=== PATIENT | female | born 1985 | race Caucasian/White ===

== ENCOUNTER 2016-10-04 16:52 | Emergency (ER) | payer SELFPAY ==
--- NOTE | 2016-10-04 17:39 | C.PDOC ---
History Of Present Illness <Yvonne Hart - Last Filed: 10/04/16 18:52> <Vikki Hicks - Last Filed: 10/04/16 19:15> 31 y/o female presents to ED with complaints of suprapubic pain for a couple of days. Patient states she took a home that was positive and reports LMP 08/12/16. Patient denies vaginal bleeding, fever, chills or any other medical problems. No other complaints at this time. (Yvonne Hart) History Per: Patient History/Exam Limitations: no limitations Onset/Duration Of Symptoms: Days Current Symptoms Are (Timing): Still Present <Yvonne Hart - Last Filed: 10/04/16 18:52> <Vikki Hicks - Last Filed: 10/04/16 19:15> Time Seen by Provider: 10/04/16 17:15 Chief Complaint (Nursing): Female Genitourinary Past Medical History Reviewed: Historical Data, Nursing Documentation, Vital Signs Family History: States: Unknown Family Hx - Social History Hx Alcohol Use: No Hx Substance Use: No - Immunization History Hx Tetanus Toxoid Vaccination: No Hx Influenza Vaccination: No Hx Pneumococcal Vaccination: No <Yvonne Hart - Last Filed: 10/04/16 18:52> Review Of Systems Except As Marked, All Systems Reviewed And Found Negative. Constitutional: Negative for: Fever, Chills Gastrointestinal: Positive for: Abdominal Pain. Negative for: Nausea, Vomiting , Diarrhea Genitourinary: Negative for: Dysuria, Vaginal Bleeding Skin: Negative for: Rash <Yvonne Hart - Last Filed: 10/04/16 18:52> Physical Exam - Physical Exam Appears: Non-toxic, No Acute Distress Skin: Normal Color, Warm, Other (multiple areas of erythema noted on both lower extremities) Head: Atraumatic, Normacephalic Oral Mucosa: Moist Cardiovascular: Rhythm Regular, No Murmur Respiratory: Normal Breath Sounds, No Rales, No Rhonchi, No Wheezing Gastrointestinal/Abdominal: Tenderness (Suprapubic Tenderness), No Guarding, No Rebound Extremity: Normal ROM, Capillary Refill (<2 seconds) Neurological/Psych: Oriented x3 <Yvonne Hart - Last Filed: 10/04/16 18:52> ED Course And Treatment - Laboratory Results Result Diagrams: 10/04/16 17:46 10/04/16 17:46 Lab Interpretation: Normal Urine POC: Positive O2 Sat by Pulse Oximetry: 98 (RA) Pulse Ox Interpretation: Normal Progress Note: Abdomen soft mild lower abdominal tenderness <HaileyYvonne - Last Filed: 10/04/16 18:52> - Laboratory Results Result Diagrams: 10/04/16 17:46 10/04/16 17:46 Lab Interpretation: Normal (BHCG 1605) Urine POC: Positive Pulse Ox Interpretation: Normal - CT Scan/US Pelvic ultrasound Other Rad Studies (CT/US): Read By Radiologist, Radiology Report Reviewed CT/US Interpretation: Accession No. : [id number]. Patient Name / ID : GARCIA PRINCE / [id number]. Exam Date : 10/04/2016 18:04:17 ( Approved ). Study Comment : Sex / Age : F / 31Y. Creator : Marcell Lantigua MD. Dictator : Marcell Lantigua MD. Residential Tech : Branch Operation Evaluation Manager : Marcell Lantigua MD. Approver2 : Report Date : 10/04/2016 19:01:39. My Comment : . HISTORY: bleeding. COMPARISON: None available. TECHNIQUE: Transabdominal and transvaginal. FINDINGS: UTERUS: Measures 8.3 x 4.8 x 5.6 cm. No uterine mass. ENDOMETRIUM: Measures 16 mm in diameter. 3 mm cystic structure within the endometrium, out of range for determination of age. This may represent an early intrauterine gestation but should be followed up with serial beta HCG and transvaginal pelvic ultrasound examination. CERVIX: No cervical abnormality identified. RIGHT OVARY: Measures 2.8 x 2.3 x 2.4 cm. No solid mass. Normal flow. LEFT OVARY: Measures 3.2 x 2.0 x 2.7 cm. No solid mass. Normal flow. FREE FLUID: No significant free fluid noted. OTHER FINDINGS: None. IMPRESSION: Tiny endometrial cyst, 3 mm, out of range for determination of age. Possible very early intrauterine gestation. Please correlate with serial beta HCG and follow-up with transvaginal pelvic ultrasound examination if warranted. Otherwise unremarkable examination. Reevaluation Time: 19:14 Reassessment Condition: Improved <Vikki Hicks - Last Filed: 10/04/16 19:15> Medical Decision Making <Yvonne Hart - Last Filed: 10/04/16 18:52> <Vikki Hicks - Last Filed: 10/04/16 19:15> Medical Decision Making: Plan: * Ultrasound of abdomen * Labs (Yvonne Hart) Disposition Counseled Patient/Family Regarding: Studies Performed, Diagnosis, Need For Followup - Disposition Disposition Time: 19:00 - POA Present On Arrival: None <Yvonne Hart - Last Filed: 10/04/16 18:52> Counseled Patient/Family Regarding: Studies Performed, Diagnosis, Need For Followup <Vikki Hicks - Last Filed: 10/04/16 19:15> - Disposition Referrals: [facility] [Outside] Disposition: HOME/ ROUTINE Condition: STABLE Additional Instructions: Follow up with program architect for further evaluation Instructions: Abdominal Pain in (ED) Print Language: CHILEAN - Clinical Impression Clinical Impression: Insect bite - wound, Abdominal pain affecting - Scribe Statement The provider has reviewed the documentation as recorded by the Scribe <Yvonne Hart - Last Filed: 10/04/16 18:52> <Vikki Hicks - Last Filed: 10/04/16 19:15> - Scribe Statement Maxwell Mays All medical record entries made by the Scribe were at my direction and personally dictated by me. I have reviewed the chart and agree that the record accurately reflects my personal performance of the history, physical exam, medical decision making, and the department course for this patient. I have also personally directed, reviewed, and agree with the discharge instructions and disposition. (Yvonne Hart) Physician Patient Turnover Patient Signed Over To: Vikki Hicks Handoff Comments: pending US <Yvonne Hart - Last Filed: 10/04/16 18:52>
[2016-10-04 18:09] LABS: BASO % 0.2 % (0.0-2.0); EOS # 0.1 K/uL (0.0-0.7); EOS % 1.2 % (0.0-4.0); HEMOGLOBIN 12.7 g/dL (11.0-16.0); LYMPH # 1.8 K/uL (1.0-4.3); LYMPH % 25.5 % (20.0-40.0); MEAN CELL VOLUME 89.9 fL (81.0-99.0); MEAN CORPUSCULAR HEMOGLOBIN 29.9 pg (27.0-31.0); MEAN CORPUSCULAR HGB CONC 33.2 g/dL (33.0-37.0); MEAN PLATELET VOLUME 9.6 fL (7.2-11.7); MONO # 0.5 K/uL (0.0-0.8); MONO % 6.7 % (0.0-10.0); NEUT # 4.6 K/uL (1.8-7.0); NEUT % 66.4 % (50.0-75.0); RBC 4.23 Mil/uL (3.80-5.20); RED CELL DISTRIBUTION WIDTH 14.3 % (11.5-14.5)
[2016-10-04 18:11] LABS: BLOOD UREA NITROGEN 10 mg/dL (7-17); GFR AFRICAN-AMERICAN > 60; GFR NON-AFRICAN AMERICAN > 60
[2016-10-04 18:12] LABS: CALCIUM 8.9 mg/dl (8.6-10.4)
[2016-10-04 18:56] LABS: HCG,QUALITATIVE URINE POSITIVE (NEGATIVE)
[2016-10-04 19:00] LABS: SQUAMOUS EPITHIAL 8 /hpf (0-5); URINE BACTERIA RARE (<OCC); URINE BILIRUBIN NEGATIVE (NEGATIVE); URINE BLOOD NEGATIVE (NEGATIVE); URINE CLARITY Clear (Clear); URINE COLOR Yellow (YELLOW); URINE GLUCOSE (UA) NORMAL (Normal); URINE LEUKOCYTE ESTERASE NEG Leu/uL (Negative); URINE NITRATE NEGATIVE (NEGATIVE); URINE PROTEIN NEGATIVE (NEGATIVE); URINE UROBILINOGEN NORMAL mg/dL (0.2-1.0)
--- NOTE | 2016-10-04 19:03 | US ---
HISTORY: bleeding COMPARISON: None available. TECHNIQUE: Transabdominal and transvaginal FINDINGS: UTERUS: Measures 8.3 x 4.8 x 5.6 cm. No uterine mass ENDOMETRIUM: Measures 16 mm in diameter. 3 mm cystic structure within the endometrium, out of range for determination of age. This may represent an early intrauterine gestation but should be followed up with serial beta HCG and transvaginal pelvic ultrasound examination. CERVIX: No cervical abnormality identified. RIGHT OVARY: Measures 2.8 x 2.3 x 2.4 cm. No solid mass. Normal flow. LEFT OVARY: Measures 3.2 x 2.0 x 2.7 cm. No solid mass. Normal flow. FREE FLUID: No significant free fluid noted. OTHER FINDINGS: None. IMPRESSION: Tiny endometrial cyst, 3 mm, out of range for determination of age. Possible very early intrauterine gestation. Please correlate with serial beta HCG and follow-up with transvaginal pelvic ultrasound examination if warranted. Otherwise unremarkable examination.
[2016-10-04 19:24] VITALS: BP 108/72; PULSE 78; RESP 16; TEMP 99; O2SAT 100
== END 2016-10-04 19:24 | disposition home or self-care (01) ==
LOC: C.ER 16:52
DX: O26.899 Other specified pregnancy related conditions, unspecified trimester (principal); R10.30 Lower abdominal pain, unspecified; Z3A.00 Weeks of gestation of pregnancy not specified; S80.862A Insect bite (nonvenomous), left lower leg, initial encounter; S80.861A Insect bite (nonvenomous), right lower leg, initial encounter; W57.XXXA Bitten or stung by nonvenomous insect and other nonvenomous arthropods, initial encounter

== ENCOUNTER 2017-02-09 23:29 | Emergency (ER) | payer SELFPAY ==
--- NOTE | 2017-02-09 23:54 | C.PDOC ---
History Of Present Illness Pt presents with rlq abdominal pain and dysuria for about 2-3 days. No f/c/n/v. tolerating po. dull stabbing rlq pain. No bowel habit changes. Time Seen by Provider: 02/09/17 23:48 Chief Complaint (Nursing): Abdominal Pain History Per: Patient History/Exam Limitations: no limitations Onset/Duration Of Symptoms: Days Current Symptoms Are (Timing): Still Present Context: Other Severity: Moderate Pain Scale Rating Of: 4 Location Of Pain/Discomfort: RLQ Radiation Of Pain To:: None Quality Of Discomfort: Sharp, Stabbing Associated Symptoms: Urinary Symptoms. denies: Fever, Chills, Nausea Exacerbating Factors: None Alleviating Factors: None Last Bowel Movement: Yesterday Recent travel outside of the [place]: No Additional History Per: Patient Abnormal Vaginal Bleeding: No Past Medical History Reviewed: Historical Data, Nursing Documentation, Vital Signs Vital Signs: Last Vital Signs Temp 98.0 F 02/09/17 23:37 Pulse 78 02/09/17 23:37 Resp 16 02/09/17 23:37 BP 123/82 02/09/17 23:37 Pulse Ox 99 02/10/17 00:06 - Medical History PMH: Gastritis Family History: States: No Known Family Hx - Social History Hx Alcohol Use: No Hx Substance Use: No - Immunization History Hx Tetanus Toxoid Vaccination: No Hx Influenza Vaccination: No Hx Pneumococcal Vaccination: No Review Of Systems Constitutional: Negative for: Fever, Chills ENT: Negative for: Throat Pain Cardiovascular: Negative for: Chest Pain Respiratory: Negative for: Shortness of Breath Gastrointestinal: Positive for: Abdominal Pain (rlq). Negative for: Nausea, Vomiting Genitourinary: Positive for: Dysuria, Frequency Musculoskeletal: Negative for: Back Pain Skin: Negative for: Rash Neurological: Negative for: Weakness Psych: Negative for: Anxiety Physical Exam - Physical Exam Appears: Non-toxic, No Acute Distress Skin: Warm, Dry Head: Normacephalic Eye(s): bilateral: Normal Inspection Oral Mucosa: Moist Neck: Supple Chest: Symmetrical Cardiovascular: Rhythm Regular Respiratory: No Rales, No Rhonchi, No Wheezing Gastrointestinal/Abdominal: Soft, Tenderness (rlq), No Distention, No Guarding, No Rebound Back: No CVA Tenderness Extremity: Normal ROM Extremity: Bilateral: Atraumatic, Normal Color And Temperature, Normal ROM Pulses: Left Dorsalis Pedis: Normal, Right Dorsalis Pedis: Normal Neurological/Psych: Oriented x3, Normal Speech, Normal Cognition Gait: Steady ED Course And Treatment - Laboratory Results Result Diagrams: 02/10/17 00:16 02/10/17 00:16 O2 Sat by Pulse Oximetry: 99 Pulse Ox Interpretation: Normal Reevaluation Time: 03:55 Reassessment Condition: Improved Disposition Counseled Patient/Family Regarding: Studies Performed, Diagnosis, Need For Followup, Rx Given - Disposition Referrals: [facility] [Outside] [facility] [Outside] Disposition: HOME/ ROUTINE Disposition Time: 23:54 Condition: FAIR Prescriptions: Nitrofurantoin Macrocrystals [Macrobid] 1 cap PO BID #10 cap Polyethylene Glycol 3350 [Miralax] 17 gm PO DAILY #270 ml Instructions: Abdominal Pain (ED), Gas and Bloating (ED) Forms: [facility] (Albanian) Print Language: CYPRIOT - Clinical Impression Clinical Impression: Abdominal pain, Dysuria
[2017-02-09 23:56] LABS: RBC URINE 2 /hpf (0-3); URINE BILIRUBIN NEGATIVE (NEGATIVE); URINE BLOOD NEGATIVE (NEGATIVE); URINE COLOR Yellow (YELLOW); URINE GLUCOSE (UA) NORMAL (Normal); URINE KETONE NEGATIVE (NEGATIVE); URINE LEUKOCYTE ESTERASE NEG Leu/uL (Negative); URINE PROTEIN NEGATIVE (NEGATIVE); URINE UROBILINOGEN NORMAL mg/dL (0.2-1.0); WBC URINE 2 /hpf (0-5)
[2017-02-10 00:21] LABS: BASO % 0.1 % (0.0-2.0); EOS # 0.1 K/uL (0.0-0.7); EOS % 1.3 % (0.0-4.0); LYMPH # 2.6 K/uL (1.0-4.3); LYMPH % 28.8 % (20.0-40.0); MEAN CELL VOLUME 90.4 fL (81.0-99.0); MEAN CORPUSCULAR HEMOGLOBIN 30.5 pg (27.0-31.0); MEAN CORPUSCULAR HGB CONC 33.7 g/dL (33.0-37.0); MEAN PLATELET VOLUME 9.7 fL (7.2-11.7); MONO # 0.6 K/uL (0.0-0.8); MONO % 6.9 % (0.0-10.0); RED CELL DISTRIBUTION WIDTH 12.9 % (11.5-14.5); WHITE BLOOD COUNT 9.1 K/uL (4.8-10.8)
[2017-02-10 00:34] LABS: ALKALINE PHOSPHATASE 90 U/L (38-126); ALT/SGPT 38 U/L (9-52); AST/SGOT 24 U/L (14-36); BILIRUBIN,TOTAL 0.3 mg/dL (0.2-1.3); BLOOD UREA NITROGEN 15 mg/dL (7-17); CALCIUM 8.5 mg/dl (8.6-10.4); CARBON DIOXIDE 24 mmol/L (22-30); CHLORIDE 100 mmol/L (98-107); GFR AFRICAN-AMERICAN > 60; GLUCOSE,RANDOM 97 mg/dL (65-105); POTASSIUM 3.3 mmol/L (3.6-5.2); SODIUM 135 mmol/L (132-148); TOTAL PROTEIN 8.8 g/dL (6.3-8.3)
[2017-02-10] MEDS ORDERED: Iodixanol 320 MG/ML 100 ML BOTTLE IV ONE (00:57)
--- NOTE | 2017-02-10 01:32 | CT ---
EXAM: CT Abdomen and Pelvis With Intravenous Contrast EXAM DATE/TIME: 02/10/2017 12:02 AM CLINICAL HISTORY: 31 years old, female; Pain; Abdominal pain; Additional info: Rlq pain TECHNIQUE: Axial computed tomography images of the abdomen and pelvis with intravenous contrast. All CT scans at this facility use one or more dose reduction techniques, viz.: automated exposure control; ma/kV adjustment per patient size (including targeted exams where dose is matched to indication; i.e. head); or iterative reconstruction technique. Coronal and sagittal reformatted images were created and reviewed. CONTRAST: 100 mL of 100ml [id number] administered intravenously. COMPARISON: There are no prior studies for comparison. FINDINGS: Artifacts: Motion artifact degrades image quality. Streak artifact degrades image quality. Lower thorax: Heart size is normal. Lung bases are clear. ABDOMEN: Liver: unremarkable Gallbladder and bile ducts: unremarkable Pancreas: unremarkable Spleen: unremarkable Adrenals: unremarkable Kidneys and ureters: Right kidney is malrotated.Kidneys and ureters are otherwise unremarkable. Stomach and bowel: Streak and motion limited evaluation of the stomach. Stomach is almost empty. Rotation is normal. There is air and fluid throughout the small bowel. There is fecalization of the distal ileum. Appendix is unremarkable. Streak and motion limited evaluation of the colon. There is minimal diverticulosis. Appendix: See stomach and bowel PELVIS: Bladder: unremarkable Reproductive: Uterus and adnexal structures are unremarkable. ABDOMEN and PELVIS: Intraperitoneal space: There is no free air or free fluid. Bones/joints: There are no acute osseous abnormalities. Soft tissues: There is a small fat containing umbilical hernia. Vasculature: Vascular structures are unremarkable. Lymph nodes: There is shotty adenopathy. IMPRESSION: No acute solid visceral or bowel abnormality; no appendicitis or diverticulitis
[2017-02-10 05:32] VITALS: BP 135/84; PULSE 82; RESP 20; TEMP 98; O2SAT 98
== END 2017-02-10 05:31 | disposition home or self-care (01) ==
LOC: C.ER 23:29
DX: R10.31 Right lower quadrant pain (principal); R30.0 Dysuria
CPT/HCPCS: 74177; 80053; 81001; 83690; 84703; 85025; 85610; 85730; 96374; 99283; J1885; Q9967

== ENCOUNTER 2017-05-13 17:01 | Emergency (ER) | payer SELFPAY ==
[2017-05-13 17:24] VITALS: BMI 34.2
[2017-05-13 17:26] VITALS: BP 116/78; PULSE 88; RESP 18; TEMP 98.6; O2SAT 98
--- NOTE | 2017-05-13 19:25 | C.PDOC ---
History Of Present Illness 32 year old female presents to the ER with a complaint of a right sided headache since yesterday. Patient reports taking tylenol 650mg twice yesterday with some improvement but is concerned she may have neurological issues. Patient has had many prior evaluation in the past with normal findings. Denies fever, nausea, or vomiting. Time Seen by Provider: 05/13/17 19:16 Chief Complaint (Nursing): Weakness/Neurological Deficit History Per: Patient History/Exam Limitations: no limitations Onset/Duration Of Symptoms: Days Current Symptoms Are (Timing): Still Present Seizure Or Post-ictal Symptoms: None Fall Associated With With Symptoms: No Recent travel outside of the [place]: No - Symptoms Of CVA Associated Symptoms: denies: Impaired Speech, Seizure Activity, New Vision Deficit(Left), New Vision Deficit(Right), Decreased Ability To Walk, New Confusion Past Medical History Reviewed: Historical Data, Nursing Documentation, Vital Signs Vital Signs: Last Vital Signs Temp 98.6 F 05/13/17 17:24 Pulse 88 05/13/17 17:24 Resp 18 05/13/17 17:24 BP 116/78 05/13/17 17:24 Pulse Ox 98 05/13/17 19:25 - Medical History PMH: Gastritis Family History: States: Unknown Family Hx - Social History Hx Alcohol Use: No Hx Substance Use: No - Immunization History Hx Tetanus Toxoid Vaccination: No Hx Influenza Vaccination: No Hx Pneumococcal Vaccination: No Review Of Systems Constitutional: Negative for: Fever, Chills Eyes: Negative for: Vision Change Gastrointestinal: Negative for: Nausea, Vomiting Neurological: Positive for: Headache Physical Exam - Physical Exam Appears: Non-toxic, No Acute Distress Skin: Warm, Dry Head: Atraumatic, Normacephalic Eye(s): bilateral: Normal Inspection, PERRL, EOMI Ear(s): Bilateral: Other (Mild excoriation of outer ear canal without otitis externa) Oral Mucosa: Moist Neck: Normal, Supple Chest: Symmetrical, No Tenderness Cardiovascular: Rhythm Regular Respiratory: Normal Breath Sounds, No Rales, No Rhonchi, No Wheezing Gastrointestinal/Abdominal: Soft Extremity: Normal ROM (x4) Neurological/Psych: Oriented x3, Normal Speech, Normal Motor, Normal Sensation Gait: Steady ED Course And Treatment O2 Sat by Pulse Oximetry: 98 (Room air) Pulse Ox Interpretation: Normal Medical Decision Making Medical Decision Making: mild R ear external canal excoriation without otitis externa no s/s of flu now tylenol/motrin dosages educated. Disposition Doctor Will See Patient In The: Office Counseled Patient/Family Regarding: Studies Performed, Diagnosis - Disposition Referrals: [facility] [Outside] [facility] [Outside] Disposition: HOME/ ROUTINE Disposition Time: 19:25 Condition: GOOD Additional Instructions: sigue ibuprofeno 400-600 mg cada 6 horas mai necessario para dolor de morro Sigue Tylenol 1000 mg cada 6 horas mai necessario para dolor de morro Sigue en [facility] (gratis) mai necessario. Instructions: Headache, Adult Forms: [facility] (Hungarian) Print Language: SWEDISH - Clinical Impression Clinical Impression: Anxiety, Headache - Scribe Statement The provider has reviewed the documentation as recorded by the Scribe Mark Quesada All medical record entries made by the Scribe were at my direction and personally dictated by me. I have reviewed the chart and agree that the record accurately reflects my personal performance of the history, physical exam, medical decision making, and the department course for this patient. I have also personally directed, reviewed, and agree with the discharge instructions and disposition.
== END 2017-05-13 19:36 | disposition home or self-care (01) ==
LOC: C.ER 17:01
DX: F41.9 Anxiety disorder, unspecified (principal); R51 Headache

== ENCOUNTER 2017-06-10 06:44 | Emergency (ER) | payer OTHER ==
[2017-06-10 06:44] VITALS: BMI 34.2
[2017-06-10] MEDS ORDERED: Aluminum Hydroxide/Magnesium Hydroxide Susp (30 mL) PO STA (07:42)
--- NOTE | 2017-06-10 07:42 | C.PDOC ---
History Of Present Illness 32-YEAR-OLD FEMALE, PRESENTS TO THE EMERGENCY DEPARTMENT WITH COMPLAINTS OF EPIGASTRIC PAIN X3 DAYS. PAIN IS LOCALIZED, INTERMITTENT, WORSE WITH EATING. + NORMAL APPETITE. NO NVD. NO FEVER, PSHX NEG. +MULT PRIOR ER VISITS FOR VARIOUS ABD COMPLAINTS. STATES THIS PAIN IS DIFFERENT THAN PRIOR. EXAM NEG Time Seen by Provider: 06/10/17 07:19 Chief Complaint (Nursing): Abdominal Pain History Per: Patient History/Exam Limitations: no limitations Current Symptoms Are (Timing): Still Present Severity: Moderate Past Medical History Reviewed: Historical Data, Nursing Documentation, Vital Signs Vital Signs: Last Vital Signs Temp 98.6 F 06/10/17 10:42 Pulse 80 06/10/17 10:42 Resp 17 06/10/17 10:42 BP 107/69 06/10/17 10:42 Pulse Ox 99 06/10/17 10:42 - Medical History PMH: Gastritis Denies: Chronic Kidney Disease Family History: States: No Known Family Hx - Social History Hx Alcohol Use: No Hx Substance Use: No - Immunization History Hx Tetanus Toxoid Vaccination: No Hx Influenza Vaccination: No Hx Pneumococcal Vaccination: No Review Of Systems Constitutional: Negative for: Fever, Chills Cardiovascular: Negative for: Chest Pain Gastrointestinal: Positive for: Abdominal Pain. Negative for: Nausea, Vomiting , Diarrhea Genitourinary: Negative for: Dysuria, Frequency, Hematuria, Vaginal Discharge, Vaginal Bleeding Musculoskeletal: Negative for: Back Pain Physical Exam - Physical Exam Appears: Well, Non-toxic, No Acute Distress Skin: Normal Color, Warm, Dry, No Rash Head: Normacephalic Eye(s): bilateral: PERRL Nose: Normal, No Flaring, No Discharge Oral Mucosa: Moist Lips: Normal Appearing Neck: Normal ROM Cardiovascular: Rhythm Regular, No Murmur Respiratory: Normal Breath Sounds, No Accessory Muscle Use Gastrointestinal/Abdominal: Soft, No Tenderness, No Guarding, No Rebound Extremity: Normal ROM Neurological/Psych: Oriented x3, Normal Speech ED Course And Treatment - Laboratory Results Result Diagrams: 06/10/17 08:06 06/10/17 08:06 Urine POC: Positive O2 Sat by Pulse Oximetry: 97 (RA) Pulse Ox Interpretation: Normal - CT Scan/US ABD Other Rad Studies (CT/US): Read By Radiologist (D/W DR COLIN CHOLELITHIASIS NO THALIA CYSTITIS) TRANSVAG Other Rad Studies (CT/US): Read By Radiologist (D/W DR COLIN NO EVIDENCE IUP ) Progress - Data Reviewed Data Reviewed: Lab, Old records Disposition Counseled Patient/Family Regarding: Studies Performed, Diagnosis, Need For Followup - Disposition Referrals: [facility] [Outside] [facility] [Outside] Disposition: HOME/ ROUTINE Disposition Time: 11:49 Condition: IMPROVED Additional Instructions: REGRESE EN 2-3 [place] PARA REPETIR LA PRUEBA DE CARMEN DE [place]. EVITE ALIMENTOS GRASOS Y FRITOS. SEGUIMIENTO EN CLNICA. Instructions: Gallstones, Threatened Miscarriage Forms: [employer] (Slovak) Print Language: LAO - Clinical Impression Clinical Impression: , Biliary colic - Scribe Statement The provider has reviewed the documentation as recorded by the Scribe (Demetrio Rodriguez) All medical record entries made by the Scribe were at my direction and personally dictated by me. I have reviewed the chart and agree that the record accurately reflects my personal performance of the history, physical exam, medical decision making, and the department course for this patient. I have also personally directed, reviewed, and agree with the discharge instructions and disposition.
[2017-06-10] MEDS ORDERED: Aluminum Hydroxide/Magnesium Hydroxide Susp (30 mL) ONE (08:06)
[2017-06-10 08:12] LABS: BASO % 0.1 % (0.0-2.0); EOS # 0.1 K/uL (0.0-0.7); EOS % 1.7 % (0.0-4.0); HEMOGLOBIN 12.5 g/dL (11.0-16.0); LYMPH # 2.9 K/uL (1.0-4.3); LYMPH % 35.1 % (20.0-40.0); MEAN CELL VOLUME 91.3 fL (81.0-99.0); MEAN CORPUSCULAR HEMOGLOBIN 31.3 pg (27.0-31.0); MEAN CORPUSCULAR HGB CONC 34.3 g/dL (33.0-37.0); MEAN PLATELET VOLUME 9.8 fL (7.2-11.7); MONO # 0.4 K/uL (0.0-0.8); MONO % 4.5 % (0.0-10.0); NEUT # 4.8 K/uL (1.8-7.0); NEUT % 58.6 % (50.0-75.0); RBC 4.01 Mil/uL (3.80-5.20); RED CELL DISTRIBUTION WIDTH 13.8 % (11.5-14.5); WHITE BLOOD COUNT 8.2 K/uL (4.8-10.8)
[2017-06-10 08:18] LABS: SQUAMOUS EPITHIAL 1 /hpf (0-5); URINE BACTERIA RARE (<OCC); URINE BILIRUBIN NEGATIVE (NEGATIVE); URINE BLOOD NEGATIVE (NEGATIVE); URINE CLARITY Clear (Clear); URINE COLOR Yellow (YELLOW); URINE GLUCOSE (UA) NORMAL (Normal); URINE LEUKOCYTE ESTERASE NEG Leu/uL (Negative); URINE PROTEIN NEGATIVE (NEGATIVE)
[2017-06-10 08:25] LABS: ALB/GLOB RATIO 1.1 (1.0-2.1); ALBUMIN 4.1 g/dL (3.5-5.0); ALT/SGPT 61 U/L (9-52); AST/SGOT 68 U/L (14-36); BLOOD UREA NITROGEN 14 mg/dL (7-17); CALCIUM 8.3 mg/dl (8.6-10.4); GFR AFRICAN-AMERICAN > 60; GFR NON-AFRICAN AMERICAN > 60; LIPASE 175 U/L (23-300)
[2017-06-10 10:42] VITALS: TEMP 98.6
--- NOTE | 2017-06-10 11:34 | US ---
HISTORY: ABD PAIN R/O ECTOPIC COMPARISON: None available. TECHNIQUE: Transabdominal and transvaginal FINDINGS: UTERUS: Measures 7.9 x 4.2 x 5.4 cm. Normal in size and appearance. No fibroid or other mass lesion seen. ENDOMETRIUM: Measures 9 mm in diameter. Unremarkable. CERVIX: No cervical abnormality identified. RIGHT OVARY: Measures 3.3 x 2.0 x 3.3 cm. No solid mass. Normal flow. LEFT OVARY: Measures 2.9 x 1.8 x 3.1 cm. No solid mass. Normal flow. FREE FLUID: No significant free fluid noted. OTHER FINDINGS: None. IMPRESSION: Unremarkable pelvic ultrasound.
--- NOTE | 2017-06-10 11:51 | US ---
HISTORY: ABD PAIN R/O ACUTE THALIA COMPARISON: None. TECHNIQUE: Sonographic evaluation of the right upper quadrant of the abdomen. FINDINGS: LIVER: Measures 15.3 cm in length. Diffusely increased echogenicity of the liver parenchyma. Consistent with fatty infiltration. No focal mass. Smooth contour. No biliary ductal dilatation. GALLBLADDER: Cholelithiasis. No mural thickening. No pericholecystic fluid. Negative sonographic Botello sign. COMMON BILE DUCT: Measures 4 mm. No stones. No dilatation. PANCREAS: Unremarkable as visualized. No mass. No ductal dilatation. RIGHT KIDNEY: Measures 12.5 cm in length. Normal echogenicity. No calculus, mass, or hydronephrosis. AORTA: No aneurysmal dilatation. IVC: Unremarkable. OTHER FINDINGS: None . IMPRESSION: Cholelithiasis without sonographic evidence of cholecystitis. Mild fatty infiltration of the liver.
[2017-06-10 12:07] VITALS: BP 106/73; PULSE 79; RESP 18; O2SAT 99
== END 2017-06-10 12:10 | disposition home or self-care (01) ==
LOC: C.ER 06:44
DX: K80.50 Calculus of bile duct without cholangitis or cholecystitis without obstruction (principal); O26.90 Pregnancy related conditions, unspecified, unspecified trimester; Z3A.00 Weeks of gestation of pregnancy not specified
CPT/HCPCS: 76705; 76830; 76856; 80053; 81001; 83690; 84702; 85025; 96374; 96375; 99285; C9113

== ENCOUNTER 2017-12-24 18:56 | Emergency (ER) | payer OTHER ==
[2017-12-24 19:02] VITALS: BMI 32.2
[2017-12-24 20:02] LABS: HCG,QUALITATIVE URINE NEGATIVE (NEGATIVE)
[2017-12-24 20:05] LABS: SQUAMOUS EPITHIAL < 1 /hpf (0-5); URINE BACTERIA RARE (<OCC); URINE BILIRUBIN NEGATIVE (NEGATIVE); URINE BLOOD NEGATIVE (NEGATIVE); URINE CLARITY Clear (Clear); URINE COLOR Yellow (YELLOW); URINE GLUCOSE (UA) NORMAL (Normal); URINE LEUKOCYTE ESTERASE NEG Leu/uL (Negative); URINE PROTEIN NEGATIVE (NEGATIVE); URINE UROBILINOGEN NORMAL mg/dL (0.2-1.0)
[2017-12-24] MEDS ORDERED: Sodium Chloride 0.9% 1,000 ML IV ONE (20:05)
[2017-12-24 20:17] LABS: BASO % 0.3 % (0.0-2.0); HEMOGLOBIN 12.7 g/dL (11.0-16.0); LYMPH # 1.9 K/uL (1.0-4.3); LYMPH % 15.5 % (20.0-40.0); MEAN CELL VOLUME 89.5 fL (81.0-99.0); MEAN CORPUSCULAR HEMOGLOBIN 30.8 pg (27.0-31.0); MEAN CORPUSCULAR HGB CONC 34.5 g/dL (33.0-37.0); MEAN PLATELET VOLUME 8.8 fL (7.2-11.7); MONO # 0.5 K/uL (0.0-0.8); MONO % 4.3 % (0.0-10.0); NEUT # 9.7 K/uL (1.8-7.0); NEUT % 79.9 % (50.0-75.0); NRBC % 0.1 % (0.0-2.0); RBC 4.12 Mil/uL (3.80-5.20); RED CELL DISTRIBUTION WIDTH 13.2 % (11.5-14.5); WHITE BLOOD COUNT 12.1 K/uL (4.8-10.8)
[2017-12-24 20:30] LABS: ALB/GLOB RATIO 1.3 (1.0-2.1); ALBUMIN 4.4 g/dL (3.5-5.0); ALT/SGPT 29 U/L (9-52); AST/SGOT 23 U/L (14-36); BLOOD UREA NITROGEN 13 mg/dL (7-17); GFR NON-AFRICAN AMERICAN > 60
[2017-12-24 21:42] VITALS: BP 110/70; PULSE 82; RESP 20; TEMP 98.4; O2SAT 100
--- NOTE | 2017-12-25 02:44 | C.PDOC ---
History Of Present Illness 32 y/o female presents to the ED with complaints of mild dizziness and headache for the past 4 days. She denies associated chest pain, SOB, nausea, vomiting, fever, or cough. Did not take anything for pain prior to arrival. Time Seen by Provider: 12/24/17 19:55 Chief Complaint (Nursing): Headache History Per: Patient History/Exam Limitations: no limitations Onset/Duration Of Symptoms: Days Current Symptoms Are (Timing): Still Present Past Medical History Reviewed: Historical Data, Nursing Documentation, Vital Signs Vital Signs: Last Vital Signs Temp 98.4 F 12/24/17 21:41 Pulse 82 12/24/17 21:41 Resp 20 12/24/17 21:41 BP 110/70 12/24/17 21:41 Pulse Ox 100 12/24/17 21:41 - Medical History PMH: Gastritis Denies: Chronic Kidney Disease Surgical History: No Surg Hx Family History: States: Unknown Family Hx - Social History Hx Tobacco Use: No Hx Alcohol Use: No Hx Substance Use: No - Immunization History Hx Tetanus Toxoid Vaccination: No Hx Influenza Vaccination: No Hx Pneumococcal Vaccination: No Review Of Systems Except As Marked, All Systems Reviewed And Found Negative. Constitutional: Negative for: Fever, Chills Eyes: Negative for: Vision Change Cardiovascular: Negative for: Chest Pain Respiratory: Negative for: Cough, Shortness of Breath Gastrointestinal: Negative for: Nausea, Vomiting, Abdominal Pain Neurological: Positive for: Headache, Dizziness. Negative for: Weakness, Numbness, Incoordination, Change in Speech, Confusion Physical Exam - Physical Exam Appears: Non-toxic, No Acute Distress Skin: Normal Color, Warm, Dry Head: Atraumatic, Normacephalic Eye(s): bilateral: Normal Inspection, PERRL, EOMI Neck: Normal ROM, Supple Chest: Symmetrical Cardiovascular: Rhythm Regular, No Murmur Respiratory: Normal Breath Sounds, No Accessory Muscle Use Gastrointestinal/Abdominal: Soft, No Tenderness, No Distention Extremity: Bilateral: Atraumatic, Normal Color And Temperature, Normal ROM Neurological/Psych: Oriented x3, Normal Speech, Normal Cranial Nerves, Normal Motor, Normal Sensation Gait: Steady ED Course And Treatment - Laboratory Results Result Diagrams: 12/24/17 20:13 12/24/17 20:13 O2 Sat by Pulse Oximetry: 100 (RA) Pulse Ox Interpretation: Normal - CT Scan/US Head CT Other Rad Studies (CT/US): Read By Radiologist, Radiology Report Reviewed CT/US Interpretation: Name:NIKI ZELAYA Exam Date:Dec 24, 2017 8:58:13 PM EDT. Modality Type:CT. Description:CT - BRAIN. Gender:F Laterality:Not applicable. :86 Referring Physician:Leobardo Jung (). EXAM: CT Head Without IV contrast. CLINICAL HISTORY: HEADACHE. R/O ICH. TECHNIQUE: Axial computed tomography images of the head/brain without intravenous contrast. COMPARISON: None provided. FINDINGS: BRAIN. No acute intraparenchymal hemorrhage. No mass lesion. No CT evidence for acute territorial infarct. No midline shift or extra- axial collections. VENTRICLES: No hydrocephalus. ORBITS: The orbits are unremarkable. SINUSES AND MASTOIDS: The paranasal sinuses and mastoid air cells are clear. BONES: No fracture. IMPRESSION: No acute intracranial abnormality. . Electronically signed on Dec 24, 2017 9:26:49 PM EDT by: Yevgeniy Cota M.D., Certified by [facility] Medical Decision Making Medical Decision Making: Impression: 32 y/o F presenting with headache and dizziness Initial Plan: --CMP --CBC --Urinalysis --Urine HCG --IV fluids --Meclizine 25 mg PO --Pending Head CT Head CT negative. Labs reviewed. Discussed all results with patient. On reassessment patient reports improvement in symptoms and is stable for discharge. Advised to take medication as prescribed and follow up with the clinic this week. Disposition Counseled Patient/Family Regarding: Studies Performed, Diagnosis, Need For Followup, Rx Given - Disposition Referrals: [facility] [Outside] [facility] [Outside] Disposition: HOME/ ROUTINE Disposition Time: 21:30 Condition: IMPROVED Additional Instructions: NIKI ZELAYA, thank you for letting us take care of you today. The emergency medical care you received today was directed at your acute symptoms. If you were prescribed any medication, please fill it and take as directed. It may take several days for your symptoms to resolve. Return to the Emergency Department if your symptoms worsen, do not improve, or if you have any other problems. Please contact your doctor or call one of the physicians/clinics you have been referred to that are listed on the Patient Visit Information form that is included in your discharge packet. Bring any paperwork you were given at discharge with you along with any medications you are taking to your follow up visit. Our treatment cannot replace ongoing medical care by a primary care pro vider outside of the emergency department. Thank you for allowing the [facility] team to be part of your care today. Follow up with the clinic this week for outpatient care and re-evaluation. NIKI ZELAYA, anuja por dejarnos cuidar de ti hoy. La atencin mdica de emergencia que recibi hoy se dirigi a yusef sntomas agudos. Si le recetaron algn medicamento, llnelo y tmelo segn las indicaciones. Los sntomas pueden tardar varios bonilla en resolverse. Regrese al Departamento de Emergencias si yusef sntomas empeoran, no mejoran o si tiene otros problemas. Comunquese con esparza mdico o llame a danielle de los mdicos / clnicas a los que castillo sido referido que figuran en el formulario de Informacin de visita al paciente que se incluye en esparza [place] de [place]. Lleve con usted a esparza consulta de seguimiento toda la documentacin que recibi del walter junto con los medicamentos que est tomando. Nuestro tratamiento no puede reemplazar la atencin mdica continua por parte de un proveedor de atencin primaria fuera del departamento de emergencias. Anuja por permitir que el equipo de [facility] sea parte de esparza atencin hoy. Erma un seguimiento con la clnica esta semana para la atencin ambulatoria y la reevaluacin. Prescriptions: Ibuprofen [Motrin] 600 mg PO Q6 PRN #20 tab PRN Reason: Pain, Moderate (4-7) Meclizine [Meclizine*] 25 mg PO Q6 PRN #20 tab PRN Reason: Dizziness Instructions: Vertigo (a Type of Dizziness) (DC) Forms: Gen Discharge Inst Ugandan, [facility] (Ugandan) Print Language: CZECH - POA Present On Arrival: None - Clinical Impression Clinical Impression: Vertigo - Scribe Statement The provider has reviewed the documentation as recorded by the Scribe (Ro Knott) Provider Attestation: All medical record entries made by the Scribe were at my direction and personally dictated by me. I have reviewed the chart and agree that the record accurately reflects my personal performance of the history, physical exam, medical decision making, and the department course for this patient. I have also personally directed, reviewed, and agree with the discharge instructions and disposition.
--- NOTE | 2017-12-25 06:53 | CT ---
Date of service: 2017-12-24 20:58:13 PROCEDURE: CT HEAD WITHOUT CONTRAST. HISTORY: Headache. COMPARISON: None available. TECHNIQUE: Axial computed tomography images were obtained through the head/brain without intravenous contrast. Radiation dose: Total exam DLP = 975 mGy-cm. This CT exam was performed using one or more of the following dose reduction techniques: Automated exposure control, adjustment of the mA and/or kV according to patient size, and/or use of iterative reconstruction technique. FINDINGS: HEMORRHAGE: No intracranial hemorrhage. BRAIN: No mass effect or edema. No atrophy or chronic microvascular ischemic changes. Punctate hypodensity in the left basal ganglia may represent a prominent perivascular space. VENTRICLES: Unremarkable. No hydrocephalus. CALVARIUM: Unremarkable. PARANASAL SINUSES: Unremarkable as visualized. No significant inflammatory changes. MASTOID AIR CELLS: Unremarkable as visualized. No inflammatory changes. OTHER FINDINGS: None. IMPRESSION: No acute intracranial abnormality. If symptoms persists, consider correlation with MRI. These findings were preliminarily reported by Dr. Yevgeniy Cota from [employer] at 9:26 p.m. on 12/24/2017.
== END 2017-12-24 21:47 | disposition home or self-care (01) ==
LOC: C.ER 18:56
DX: R42 Dizziness and giddiness (principal)
CPT/HCPCS: 70450; 80053; 81001; 82948; 84703; 85025; 96360; 99285; J7030

== ENCOUNTER 2018-07-26 19:59 | Emergency (ER) | payer SELFPAY | END 2018-07-26 23:38 | disposition home or self-care (01) | LOC: C.ER 19:59 ==

== ENCOUNTER 2018-07-30 19:27 | Emergency (ER) | payer SELFPAY ==
[2018-07-30 19:27] VITALS: BMI 32.2
--- NOTE | 2018-07-30 20:55 | C.PDOC ---
History Of Present Illness Patient presents to the ED requesting repeat blood work. Patient states her last level of HcG was 480. Patient wants it to be rechecked, patient also c/o mild nausea. Patient denies fever, chills, vomit, diarrhea, rash, dysuria, hematuria, vaginal bleeding. Time Seen by Provider: 07/30/18 20:54 Chief Complaint (Nursing): Female Genitourinary History Per: Patient History/Exam Limitations: no limitations Onset/Duration Of Symptoms: Days Current Symptoms Are (Timing): Still Present Quality Of Discomfort: Unable To Describe Associated Symptoms: Nausea. denies: Vomiting, Diarrhea, Urinary Symptoms Recent travel outside of the [place]: No Additional History Per: Patient Abnormal Vaginal Bleeding: No Past Medical History Reviewed: Historical Data, Nursing Documentation, Vital Signs Vital Signs: Last Vital Signs Temp 99.5 F 07/30/18 19:38 Pulse 94 H 07/30/18 19:38 Resp 20 07/30/18 19:38 BP 109/72 07/30/18 19:38 Pulse Ox 97 07/30/18 19:38 Primary Care Provider: FAMILY PROVIDER,NO - Medical History PMH: Gastritis Denies: Chronic Kidney Disease Surgical History: No Surg Hx Family History: States: Unknown Family Hx - Social History Hx Tobacco Use: No Hx Alcohol Use: No Hx Substance Use: No - Immunization History Hx Tetanus Toxoid Vaccination: No Hx Influenza Vaccination: No Hx Pneumococcal Vaccination: No Review Of Systems Constitutional: Negative for: Fever, Chills Cardiovascular: Negative for: Chest Pain Respiratory: Negative for: Shortness of Breath Gastrointestinal: Positive for: Nausea. Negative for: Vomiting, Abdominal Pain Skin: Negative for: Rash Neurological: Negative for: Weakness, Numbness, Headache Physical Exam - Physical Exam Appears: Non-toxic, No Acute Distress Skin: Warm, Dry Head: Normacephalic Eye(s): bilateral: Normal Inspection Oral Mucosa: Moist Neck: Supple Chest: Symmetrical Cardiovascular: Rhythm Regular Respiratory: No Rales, No Rhonchi, No Wheezing Gastrointestinal/Abdominal: Soft, No Tenderness, No Distention Extremity: Bilateral: Atraumatic, Normal Color And Temperature, Normal ROM Neurological/Psych: Oriented x3, Normal Speech, Normal Cognition Gait: Steady ED Course And Treatment O2 Sat by Pulse Oximetry: 97 (ON RA) Pulse Ox Interpretation: Normal Progress Note: Plan: - Labs. - UA Reevaluation Time: :42 Reassessment Condition: Improved Disposition Counseled Patient/Family Regarding: Studies Performed, Diagnosis, Need For Followup - Disposition Referrals: [facility] [Outside] [facility] [Outside] Disposition: HOME/ ROUTINE Disposition Time: 20:55 Condition: FAIR Additional Instructions: Por favor, seguimiento en la clnica en 1-2 semanas Instructions: - The First Month Forms: [employer] (Arabic) - Clinical Impression Clinical Impression: - Scribe Statement The provider has reviewed the documentation as recorded by the Scribe Woody Dalton All medical record entries made by the Scribe were at my direction and personally dictated by me. I have reviewed the chart and agree that the record accurately reflects my personal performance of the history, physical exam, medical decision making, and the department course for this patient. I have also personally directed, reviewed, and agree with the discharge instructions and disposition.
[2018-07-30 22:50] VITALS: BP 126/81; PULSE 82; RESP 18; TEMP 98.4; O2SAT 10
== END 2018-07-30 22:50 | disposition home or self-care (01) ==
LOC: C.ER 19:27
DX: O26.891 Other specified pregnancy related conditions, first trimester (principal); Z3A.00 Weeks of gestation of pregnancy not specified